=== PATIENT | male | born 1935 | race Caucasian/White ===

== ENCOUNTER 2017-03-13 10:40 | Emergency (ER) | payer OTHER ==
[2017-03-13 13:44] VITALS: BP 154/90
== END 2017-03-13 13:44 | disposition home or self-care (01) ==
LOC: ED 10:40
DX: S52.532A Colles' fracture of left radius, initial encounter for closed fracture (principal); I10 Essential (primary) hypertension; E11.9 Type 2 diabetes mellitus without complications; Z79.82 Long term (current) use of aspirin; W11.XXXA Fall on and from ladder, initial encounter; Y93.89 Activity, other specified; Y92.89 Other specified places as the place of occurrence of the external cause; Y99.8 Other external cause status
CPT/HCPCS: J2001; J2405; J3490; Q0092

== ENCOUNTER 2017-03-17 07:02 | Day surgery (SDC) | payer OTHER ==
[2017-03-14 15:35] LABS: BASOPHIL % 0.3 % (0-2); PLATELET COUNT 158 x10^3mcL (130-400)
[2017-03-14 15:45] LABS: CALCIUM 9.2 mg/dL (8.5-10.1); CARBON DIOXIDE 28.3 mmol/L (21-32); CHLORIDE SERUM 101 mmol/L (98-107); CREATININE SERUM 1.3 mg/dL (0.7-1.3); GLUCOSE SERUM 197 mg/dL (74-106); POTASSIUM SERUM 3.8 mmol/L (3.5-5.1); SODIUM SERUM 136 mmol/L (136-145)
[2017-03-14 16:28] LABS: UA SPECIFIC GRAVITY >=1.030 (1.005-1.035); microscopic required? YES; urine erythrocyte NEGATIVE (NEGATIVE)
[~2017-03-17] VITALS: Ht 170.2 cm; Wt 70.3 kg
[2017-03-17 07:36] VITALS: BP 143/70
[2017-03-17 13:04] VITALS: BP 164/88
== END 2017-03-17 13:25 | disposition home or self-care (01) ==
LOC: DS 07:02 → OR 09:00 → DS 13:25
PROVIDERS: Neuromusculoskeletal Medicine, Sports Medicine
PROC: 0PSJ34Z Reposition Left Radius with Internal Fixation Device, Percutaneous Approach (ICD-10-PCS; principal; 2017-03-17 09:00)
DX: S52.532A Colles' fracture of left radius, initial encounter for closed fracture (principal); I10 Essential (primary) hypertension; E78.5 Hyperlipidemia, unspecified; E11.9 Type 2 diabetes mellitus without complications; M10.9 Gout, unspecified; Z95.1 Presence of aortocoronary bypass graft; W11.XXXA Fall on and from ladder, initial encounter; Y92.009 Unspecified place in unspecified non-institutional (private) residence as the place of occurrence of the external cause
CPT/HCPCS: 82962; C1713; J0690; J2250; J2270; J3010; J3490

== ENCOUNTER → 2017-04-04 | Outpatient (CLI) | payer OTHER | END | disposition home or self-care (01) | LOC: RD 14:37 | DX: S62.102D Fracture of unspecified carpal bone, left wrist, subsequent encounter for fracture with routine healing (principal); X58.XXXD Exposure to other specified factors, subsequent encounter ==

== ENCOUNTER → 2017-07-07 | Outpatient (CLI) | payer OTHER | END | disposition home or self-care (01) | LOC: RD 17:23 | DX: S62.102A Fracture of unspecified carpal bone, left wrist, initial encounter for closed fracture (principal); X58.XXXA Exposure to other specified factors, initial encounter; Y93.9 Activity, unspecified; Y92.9 Unspecified place or not applicable ==

== ENCOUNTER 2018-05-18 17:10 | Inpatient (IN) | payer OTHER ==
[~2018-05-18] VITALS: Ht 172.7 cm; Wt 65.0 kg
[2018-05-18 18:00] LABS: PLATELET COUNT 250 x10^3mcL (130-400); RED CELL DISTRIBUTION WIDTH 14.5 % (11.5-14.5)
[2018-05-18 18:07] LABS: CALCIUM 9.1 mg/dL (8.5-10.1); CARBON DIOXIDE 27.3 mmol/L (21-32); CHLORIDE SERUM 93 mmol/L (98-107); CREATININE SERUM 1.6 mg/dL (0.7-1.3); GLUCOSE SERUM 225 mg/dL (74-106); POTASSIUM SERUM 4.4 mmol/L (3.5-5.1); SODIUM SERUM 131 mmol/L (136-145)
[2018-05-18 18:12] LABS: ALKALINE PHOSPHATASE 229 U/L (46-116); ALT/SGPT 49 U/L (16-63); AST/SGOT 63 U/L (15-37); BILIRUBIN TOTAL 2.01 mg/dL (0.20-1.00); LIPASE 450 IU/L (73-393); TOTAL PROTEIN, SERUM 7.3 g/dL (6.4-8.2)
[2018-05-18 18:13] LABS: ALBUMIN 2.9 g/dL (3.4-5.0)
[2018-05-18 18:18] LABS: microscopic required? YES; urine erythrocyte TRACE (NEGATIVE)
[2018-05-18 18:21] LABS: BAND NEUTROPHIL 0 % (0-10); BASOPHIL 0 % (0-2); MONOCYTE 6 % (0-7); PLATELET MORPHOLOGY PLATELETS NORMAL; SEGMENTED NEUTROPHILS 88 % (37-75); rbc morphology (normal/abnorm) NORMAL (NORMAL)
[2018-05-18 18:22] LABS: FREE T4 1.44 ng/dL (0.76-1.46); FREE THYROXINE INDEX 3.7 ug/dL (1.4-4.5); T4(THYROXINE) 9.7 ug/dL (4.7-13.3)
[2018-05-18 18:27] LABS: T3 TOTAL 0.93 ng/mL
[2018-05-18] MEDS ORDERED: TOPROL XL25 MG (19:46)
[2018-05-18] MEDS ORDERED: LIPI10 (19:46)
[2018-05-18] MEDS ORDERED: GOOD SENSE ASPI81 M3 (19:47)
[2018-05-18] MEDS ORDERED: ONGLYZA5 M1 (19:47)
[2018-05-18] MEDS ORDERED: AVODART0.5 M1 (19:47)
[2018-05-18] MEDS ORDERED: METFORMIN ER500 M1 (19:47)
[2018-05-18] MEDS ORDERED: ALLOPURINOL100 MG (19:48)
[2018-05-18 20:33] LABS: MAGNESIUM 2.4 mg/dL (1.8-2.4); PHOSPHOROUS 2.8 mg/dL (2.5-4.9)
[2018-05-18 20:41] LABS: CHOLESTEROL/HDL RATIO 3.9
[2018-05-19 04:10] VITALS: BP 143/65
[2018-05-19 06:38] LABS: ALKALINE PHOSPHATASE 227 U/L (46-116); ALT/SGPT 86 U/L (16-63); AST/SGOT 110 U/L (15-37); BASOPHIL % 0.1 % (0-2); BILIRUBIN DIRECT 2.08 mg/dL (0.0-0.2); BILIRUBIN TOTAL 2.69 mg/dL (0.20-1.00); CALCIUM 8.2 mg/dL (8.5-10.1); CARBON DIOXIDE 29.9 mmol/L (21-32); CHLORIDE SERUM 102 mmol/L (98-107); CREATININE SERUM 1.3 mg/dL (0.7-1.3); GLUCOSE SERUM 131 mg/dL (74-106); LIPASE 405 IU/L (73-393); MAGNESIUM 2.2 mg/dL (1.8-2.4); PHOSPHOROUS 2.5 mg/dL (2.5-4.9); PLATELET COUNT 176 x10^3mcL (130-400); POTASSIUM SERUM 3.7 mmol/L (3.5-5.1); RED CELL DISTRIBUTION WIDTH 14.2 % (11.5-14.5); SODIUM SERUM 137 mmol/L (136-145)
[2018-05-19 06:46] LABS: ALBUMIN 2.3 g/dL (3.4-5.0)
[2018-05-19 08:15] VITALS: BP 142/67
[2018-05-19 09:45] VITALS: Ht 172.7 cm; Wt 65.0 kg
[2018-05-19 12:05] VITALS: BP 141/71
[2018-05-19 16:50] VITALS: BP 141/59
[2018-05-19 21:44] VITALS: BP 161/68
[2018-05-20 05:58] VITALS: BP 143/57
[2018-05-20 06:01] LABS: BASOPHIL % 0.2 % (0-2); PLATELET COUNT 164 x10^3mcL (130-400); RED CELL DISTRIBUTION WIDTH 14.2 % (11.5-14.5)
[2018-05-20 06:34] LABS: CALCIUM 8.6 mg/dL (8.5-10.1); CARBON DIOXIDE 29.7 mmol/L (21-32); CHLORIDE SERUM 102 mmol/L (98-107); CREATININE SERUM 1.1 mg/dL (0.7-1.3); GLUCOSE SERUM 111 mg/dL (74-106); POTASSIUM SERUM 4.2 mmol/L (3.5-5.1); SODIUM SERUM 138 mmol/L (136-145)
[2018-05-20 06:37] LABS: BILIRUBIN DIRECT 0.6 mg/dL (0.0-0.2); BILIRUBIN TOTAL 1.14 mg/dL (0.20-1.00)
[2018-05-20 07:23] LABS: ALBUMIN 2.2 g/dL (3.4-5.0); TOTAL PROTEIN, SERUM 5.9 g/dL (6.4-8.2)
[2018-05-20 11:28] VITALS: BP 161/80
[2018-05-20 12:11] VITALS: BP 165/77
[2018-05-20 14:40] VITALS: BP 136/75
[2018-05-20 16:25] VITALS: BP 128/69
[2018-05-20 21:18] VITALS: BP 149/90
[2018-05-21 05:47] VITALS: BP 153/74
[2018-05-21 06:40] LABS: CALCIUM 7.9 mg/dL (8.5-10.1); CARBON DIOXIDE 27.8 mmol/L (21-32); CHLORIDE SERUM 104 mmol/L (98-107); CREATININE SERUM 0.9 mg/dL (0.7-1.3); GLUCOSE SERUM 73 mg/dL (74-106); SODIUM SERUM 140 mmol/L (136-145)
[2018-05-21 08:15] VITALS: BP 150/72
[2018-05-21 08:47] LABS: RED CELL DISTRIBUTION WIDTH 14.2 % (11.5-14.5)
[2018-05-21 08:51] LABS: BASOPHIL % 0.3 % (0-2); PLATELET COUNT 200 x10^3mcL (130-400)
[2018-05-21] MEDS ORDERED: AUG500 PO (11:34)
[2018-05-21] MEDS ORDERED: LAC PO (11:34)
[2018-05-21 11:58] VITALS: BP 151/68
[2018-05-21 12:20] VITALS: BP 151/68
== END 2018-05-21 13:25 | disposition home or self-care (01) | DRG 871 ==
LOC: ED 17:10 → DU 19:25
PROVIDERS: Emergency Medicine; Family Medicine; Internal Medicine Gastroenterology; ADMIT Internal Medicine
PROC: 0FC98ZZ Extirpation of Matter from Common Bile Duct, Via Natural or Artificial Opening Endoscopic (ICD-10-PCS; principal; 2018-05-20 09:45)
DX: A41.9 Sepsis, unspecified organism (principal); N17.0 Acute kidney failure with tubular necrosis; E43 Unspecified severe protein-calorie malnutrition; K85.10 Biliary acute pancreatitis without necrosis or infection; K80.63 Calculus of gallbladder and bile duct with acute cholecystitis with obstruction; J98.11 Atelectasis; D68.69 Other thrombophilia; R65.20 Severe sepsis without septic shock; E11.59 Type 2 diabetes mellitus with other circulatory complications; E86.0 Dehydration; F03.90 Unspecified dementia, unspecified severity, without behavioral disturbance, psychotic disturbance, mood disturbance, and anxiety; Z68.21 Body mass index [BMI] 21.0-21.9, adult; Z95.1 Presence of aortocoronary bypass graft; Z79.84 Long term (current) use of oral hypoglycemic drugs; Z79.82 Long term (current) use of aspirin
CPT/HCPCS: 82962; 84439; 97116-GP; C1769; J1610; J1885; J2405; J2543; J3490; J7030; J7120; Q0092; Q0163; Q9967

== ENCOUNTER 2018-06-07 17:44 | Inpatient (IN) | payer OTHER ==
[~2018-06-07] VITALS: Ht 170.2 cm; Wt 60.8 kg
[~2018-06-07 17:44] MED LIST: ALLOPURINOL100 MG; AUG500 PO; AVODART0.5 M1; GOOD SENSE ASPI81 M3; LAC PO; LIPI10; METFORMIN ER500 M1; ONGLYZA5 M1; TOPROL XL25 MG
[2018-06-07 19:09] LABS: PLATELET COUNT 363 x10^3mcL (130-400)
[2018-06-07 19:12] LABS: UA SPECIFIC GRAVITY 1.015 (1.005-1.035); microscopic required? YES; urine erythrocyte NEGATIVE (NEGATIVE)
[2018-06-07 19:13] LABS: RED CELL DISTRIBUTION WIDTH 15.2 % (11.5-14.5)
[2018-06-07 19:27] LABS: CALCIUM 8.8 mg/dL (8.5-10.1); CARBON DIOXIDE 25.8 mmol/L (21-32); CHLORIDE SERUM 94 mmol/L (98-107); CREATININE SERUM 1.3 mg/dL (0.7-1.3); GLUCOSE SERUM 225 mg/dL (74-106); POTASSIUM SERUM 4.1 mmol/L (3.5-5.1); SODIUM SERUM 131 mmol/L (136-145)
[2018-06-07 19:33] LABS: BAND NEUTROPHIL 3 % (0-10); MONOCYTE 8 % (0-7); SEGMENTED NEUTROPHILS 79 % (37-75)
[2018-06-07 19:34] LABS: ALKALINE PHOSPHATASE 112 U/L (46-116); ALT/SGPT 16 U/L (16-63); AST/SGOT 26 U/L (15-37); BILIRUBIN TOTAL 1.35 mg/dL (0.20-1.00); MAGNESIUM 1.7 mg/dL (1.8-2.4); TOTAL PROTEIN, SERUM 7.3 g/dL (6.4-8.2)
[2018-06-07 19:37] LABS: ALBUMIN 2.7 g/dL (3.4-5.0); PLATELET MORPHOLOGY PLATELETS NORMAL; rbc morphology (normal/abnorm) ABNORMAL (NORMAL)
[2018-06-07] MEDS ORDERED: METFORMIN500 M1 (22:25)
[2018-06-07] MEDS ORDERED: PRILOSEC OTC20 M1 (22:25)
[2018-06-07] MEDS ORDERED: LIPI10 (22:25)
[2018-06-07] MEDS ORDERED: TOPROL XL25 MG (22:25)
[2018-06-07] MEDS ORDERED: CALTRATE 600 +1 TA1 (22:26)
[2018-06-07] MEDS ORDERED: ONGLYZA5 M1 (22:26)
[2018-06-07] MEDS ORDERED: AVODART0.5 M1 (22:26)
[2018-06-07] MEDS ORDERED: ALLOPURINOL100 MG (22:27)
[2018-06-07 23:56] LABS: AMPHETAMINE QUAL UR NONE DETECTED (See below)
[2018-06-07 23:57] VITALS: BP 142/74
[2018-06-08 00:29] VITALS: BP 142/74
[2018-06-08 01:36] LABS: PLATELET COUNT 321 x10^3mcL (130-400)
[2018-06-08 01:37] LABS: RED CELL DISTRIBUTION WIDTH 14.6 % (11.5-14.5)
[2018-06-08 03:48] LABS: BAND NEUTROPHIL 16 % (0-10); BASOPHIL 0 % (0-2); MONOCYTE 2 % (0-7); SEGMENTED NEUTROPHILS 76 % (37-75); rbc morphology (normal/abnorm) ABNORMAL (NORMAL)
[2018-06-08 03:49] LABS: PLATELET MORPHOLOGY PLATELETS NORMAL
[2018-06-08 05:23] LABS: PLATELET COUNT 289 x10^3mcL (130-400)
[2018-06-08 05:34] LABS: RED CELL DISTRIBUTION WIDTH 15.1 % (11.5-14.5)
[2018-06-08 05:36] LABS: CALCIUM 8.2 mg/dL (8.5-10.1); CHLORIDE SERUM 99 mmol/L (98-107); GLUCOSE SERUM 154 mg/dL (74-106); MAGNESIUM 1.5 mg/dL (1.8-2.4); PHOSPHOROUS 2.6 mg/dL (2.5-4.9); POTASSIUM SERUM 3.6 mmol/L (3.5-5.1); SODIUM SERUM 135 mmol/L (136-145)
[2018-06-08 06:06] LABS: BAND NEUTROPHIL 12 % (0-10); MONOCYTE 4 % (0-7); SEGMENTED NEUTROPHILS 76 % (37-75)
[2018-06-08 06:07] LABS: rbc morphology (normal/abnorm) ABNORMAL (NORMAL)
[2018-06-08 06:08] LABS: PLATELET MORPHOLOGY PLATELETS NORMAL
[2018-06-08 08:09] VITALS: Ht 170.2 cm; Wt 60.8 kg
[2018-06-08 08:15] VITALS: BP 137/77
[2018-06-08 11:30] VITALS: BP 111/55
[2018-06-08 13:42] LABS: BASOPHIL % 0.2 % (0-2); PLATELET COUNT 377 x10^3mcL (130-400)
[2018-06-08 16:30] VITALS: BP 161/75
[2018-06-08 19:45] VITALS: BP 140/62
[2018-06-09 05:16] VITALS: BP 106/53
[2018-06-09 06:26] LABS: ALKALINE PHOSPHATASE 151 U/L (46-116); AST/SGOT 25 U/L (15-37); BILIRUBIN TOTAL 1.24 mg/dL (0.20-1.00); CALCIUM 8.4 mg/dL (8.5-10.1); CARBON DIOXIDE 30.4 mmol/L (21-32); CHLORIDE SERUM 97 mmol/L (98-107); GLUCOSE SERUM 134 mg/dL (74-106); LIPASE 359 IU/L (73-393); MAGNESIUM 1.9 mg/dL (1.8-2.4); POTASSIUM SERUM 4.3 mmol/L (3.5-5.1); SODIUM SERUM 133 mmol/L (136-145); TOTAL PROTEIN, SERUM 6.6 g/dL (6.4-8.2)
[2018-06-09 06:45] LABS: ALT/SGPT 13 U/L (16-63)
[2018-06-09 06:51] LABS: ALBUMIN 2.3 g/dL (3.4-5.0)
[2018-06-09 06:58] VITALS: BP 106/53
[2018-06-09 07:02] LABS: PLATELET COUNT 294 x10^3mcL (130-400); RED CELL DISTRIBUTION WIDTH 15.1 % (11.5-14.5)
[2018-06-09 09:29] VITALS: BP 110/53
[2018-06-09 09:33] LABS: ATYPICAL LYMPH 3 %; BAND NEUTROPHIL 0 % (0-10); BASOPHIL 0 % (0-2); MONOCYTE 10 % (0-7); SEGMENTED NEUTROPHILS 83 % (37-75)
[2018-06-09 09:34] LABS: PLATELET MORPHOLOGY PLATELETS NORMAL; rbc morphology (normal/abnorm) ABNORMAL (NORMAL)
[2018-06-09 18:37] VITALS: BP 134/67
[2018-06-09 21:25] VITALS: BP 115/52
[2018-06-10 05:56] VITALS: BP 114/61
[2018-06-10 06:57] LABS: CALCIUM 8.5 mg/dL (8.5-10.1); CARBON DIOXIDE 29.1 mmol/L (21-32); CHLORIDE SERUM 100 mmol/L (98-107); CREATININE SERUM 0.9 mg/dL (0.7-1.3); GLUCOSE SERUM 131 mg/dL (74-106); MAGNESIUM 1.8 mg/dL (1.8-2.4); PHOSPHOROUS 3.5 mg/dL (2.5-4.9); POTASSIUM SERUM 3.6 mmol/L (3.5-5.1); SODIUM SERUM 135 mmol/L (136-145)
[2018-06-10 07:15] LABS: BASOPHIL % 0.2 % (0-2); PLATELET COUNT 270 x10^3mcL (130-400); RED CELL DISTRIBUTION WIDTH 15.5 % (11.5-14.5)
[2018-06-10 07:30] VITALS: BP 124/69
[2018-06-10 11:55] VITALS: BP 124/63
[2018-06-10 16:05] VITALS: BP 124/64
[2018-06-10 21:40] VITALS: BP 146/77
[2018-06-11 06:40] VITALS: BP 157/71
[2018-06-11 08:17] LABS: BASOPHIL % 0.3 % (0-2); PLATELET COUNT 282 x10^3mcL (130-400); RED CELL DISTRIBUTION WIDTH 15.6 % (11.5-14.5)
[2018-06-11 09:41] VITALS: BP 139/70
[2018-06-11 10:26] LABS: CALCIUM 8.5 mg/dL (8.5-10.1); CARBON DIOXIDE 28.7 mmol/L (21-32); CHLORIDE SERUM 101 mmol/L (98-107); CREATININE SERUM 0.9 mg/dL (0.7-1.3); GLUCOSE SERUM 145 mg/dL (74-106); MAGNESIUM 1.9 mg/dL (1.8-2.4); POTASSIUM SERUM 4.4 mmol/L (3.5-5.1); SODIUM SERUM 138 mmol/L (136-145)
[2018-06-11 14:09] VITALS: BP 127/70
[2018-06-11 17:34] VITALS: BP 143/76
[2018-06-11 20:58] VITALS: BP 131/75
[2018-06-12 05:53] VITALS: BP 159/85
[2018-06-12 07:06] LABS: BASOPHIL % 0.4 % (0-2); PLATELET COUNT 372 x10^3mcL (130-400)
[2018-06-12 07:14] LABS: CALCIUM 9.4 mg/dL (8.5-10.1); CARBON DIOXIDE 28.8 mmol/L (21-32); CHLORIDE SERUM 102 mmol/L (98-107); GLUCOSE SERUM 102 mg/dL (74-106); MAGNESIUM 2.2 mg/dL (1.8-2.4); PHOSPHOROUS 4.1 mg/dL (2.5-4.9); POTASSIUM SERUM 4.8 mmol/L (3.5-5.1); SODIUM SERUM 139 mmol/L (136-145)
[2018-06-12 07:25] LABS: RED CELL DISTRIBUTION WIDTH 15.4 % (11.5-14.5)
[2018-06-12 08:57] VITALS: BP 149/68
[2018-06-12 12:46] VITALS: BP 162/81
[2018-06-12 16:10] VITALS: BP 166/67
[2018-06-12 18:54] VITALS: BP 149/76
[2018-06-12 20:18] VITALS: BP 130/70
[2018-06-13 05:00] VITALS: BP 138/68
[2018-06-13 09:21] VITALS: BP 120/84
[2018-06-13 13:08] VITALS: BP 120/84
[2018-06-13 13:59] VITALS: BP 141/69
== END 2018-06-13 14:21 | disposition home health service (06) | DRG 871 ==
LOC: ED 17:44 → DU 21:59 → IC 21:59 → DU 06-08 19:47
PROVIDERS: Emergency Medicine; Internal Medicine; Surgery; ADMIT General Practice
PROC: 0F9430Z Drainage of Gallbladder with Drainage Device, Percutaneous Approach (ICD-10-PCS; principal; 2018-06-11)
DX: A41.9 Sepsis, unspecified organism (principal); N17.0 Acute kidney failure with tubular necrosis; E43 Unspecified severe protein-calorie malnutrition; D68.69 Other thrombophilia; E87.1 Hypo-osmolality and hyponatremia; K80.00 Calculus of gallbladder with acute cholecystitis without obstruction; D68.59 Other primary thrombophilia; R65.20 Severe sepsis without septic shock; I11.9 Hypertensive heart disease without heart failure; I25.10 Atherosclerotic heart disease of native coronary artery without angina pectoris; E11.65 Type 2 diabetes mellitus with hyperglycemia; E83.42 Hypomagnesemia; E78.5 Hyperlipidemia, unspecified; N40.0 Benign prostatic hyperplasia without lower urinary tract symptoms; D64.9 Anemia, unspecified; R58 Hemorrhage, not elsewhere classified; F03.90 Unspecified dementia, unspecified severity, without behavioral disturbance, psychotic disturbance, mood disturbance, and anxiety; E80.6 Other disorders of bilirubin metabolism; K40.20 Bilateral inguinal hernia, without obstruction or gangrene, not specified as recurrent; Z68.21 Body mass index [BMI] 21.0-21.9, adult; Z95.1 Presence of aortocoronary bypass graft; Z79.84 Long term (current) use of oral hypoglycemic drugs
CPT/HCPCS: 78226; 82962; 87804; A9537; C1729; G0480; J0696; J2001; J2405; J2543; J3475; J7030; J7040; J7050; J7620; Q0092; Q0161

== ENCOUNTER 2018-07-07 13:59 | Emergency (ER) | payer OTHER ==
[~2018-07-07] VITALS: Ht 170.2 cm; Wt 58.5 kg
[~2018-07-07 13:59] MED LIST changes: +CALTRATE 600 +1 TA1; +METFORMIN500 M1; +PRILOSEC OTC20 M1
[2018-07-07 14:06] VITALS: Ht 170.2 cm; Wt 58.5 kg
[2018-07-07 14:48] LABS: BASOPHIL % 0.6 % (0-2); PLATELET COUNT 257 x10^3mcL (130-400)
[2018-07-07 14:49] LABS: RED CELL DISTRIBUTION WIDTH 16.9 % (11.5-14.5)
[2018-07-07 14:53] LABS: CALCIUM 9.2 mg/dL (8.5-10.1); CARBON DIOXIDE 29.6 mmol/L (21-32); CHLORIDE SERUM 100 mmol/L (98-107); CREATININE SERUM 0.9 mg/dL (0.7-1.3); GLUCOSE SERUM 92 mg/dL (74-106); POTASSIUM SERUM 4.2 mmol/L (3.5-5.1); SODIUM SERUM 139 mmol/L (136-145)
[2018-07-07 15:00] LABS: ALKALINE PHOSPHATASE 110 U/L (46-116); ALT/SGPT 17 U/L (16-63); AST/SGOT 20 U/L (15-37); BILIRUBIN TOTAL 0.9 mg/dL (0.20-1.00); LIPASE 367 IU/L (73-393); TOTAL PROTEIN, SERUM 7.9 g/dL (6.4-8.2)
[2018-07-07 15:09] LABS: ALBUMIN 3.2 g/dL (3.4-5.0)
[2018-07-07 17:29] LABS: microscopic required? NO
[2018-07-07 17:39] VITALS: BP 176/87
[2018-07-07 18:02] LABS: MAGNESIUM 1.7 mg/dL (1.8-2.4); PHOSPHOROUS 3.5 mg/dL (2.5-4.9)
[2018-07-07 18:03] LABS: CHOLESTEROL/HDL RATIO 1.9
[2018-07-07 18:06] LABS: UA SPECIFIC GRAVITY 1.015 (1.005-1.035); urine erythrocyte NEGATIVE (NEGATIVE)
== END 2018-07-07 17:39 | disposition home or self-care (01) ==
LOC: ED 13:59
PROVIDERS: Emergency Medicine; Internal Medicine
DX: K82.8 Other specified diseases of gallbladder (principal); K80.20 Calculus of gallbladder without cholecystitis without obstruction; I10 Essential (primary) hypertension; E11.9 Type 2 diabetes mellitus without complications; Z91.041 Radiographic dye allergy status
CPT/HCPCS: 36415; Q0092

== ENCOUNTER → 2018-07-10 | Outpatient (CLI) | payer OTHER | END | disposition home or self-care (01) | LOC: RD 12:51 | DX: K80.50 Calculus of bile duct without cholangitis or cholecystitis without obstruction (principal) | CPT/HCPCS: Q9967 ==